=== PATIENT | male | born 1995 | race Two or more races ===

== ENCOUNTER 2017-10-31 18:14 | Emergency (ER) | payer MEDICAID, OTHER ==
[~2017-10-31] VITALS: Ht 177.8 cm; Wt 113.4 kg
[2017-10-31 18:44] VITALS: BP 152/89
[2017-10-31] MEDS ORDERED: LIDOCAINE 1% (LOCAL ANESTH.) PF 5ml SDV ONE (20:52)
[2017-10-31] MEDS ORDERED: TETANUS-DIPTH-ACEL PERTUSSIS 0.5ML SYRG IM ONE (21:00)
[2017-10-31] MEDS ORDERED: LIDOCAINE 1% HCL (LOCAL ANESTH.) INJ 20ML MDV ID ONE (21:00)
== END 2017-10-31 21:42 | disposition home or self-care (01) ==
LOC: ER 18:14
DX: S61.012A Laceration without foreign body of left thumb without damage to nail, initial encounter (principal); X58.XXXA Exposure to other specified factors, initial encounter; Y93.89 Activity, other specified; Y92.89 Other specified places as the place of occurrence of the external cause; Y99.8 Other external cause status
CPT/HCPCS: 12001; 90471; 90715

== ENCOUNTER 2022-06-21 09:05 | Emergency (ER) | payer OTHER ==
[~2022-06-21] VITALS: Ht 175.3 cm; Wt 136.0 kg
[2022-06-21 10:37] VITALS: BP 152/88
[2022-06-21] MEDS ORDERED: IBUPROFEN 600 MG TAB PO ONE (10:45)
[2022-06-21] MEDS ORDERED: IBUP600T28 PO (10:55)
== END 2022-06-21 11:46 | disposition home or self-care (01) ==
LOC: ER 09:05
DX: S80.11XA Contusion of right lower leg, initial encounter (principal); W22.8XXA Striking against or struck by other objects, initial encounter; Y93.89 Activity, other specified; Y92.89 Other specified places as the place of occurrence of the external cause; Y99.0 Civilian activity done for income or pay
CPT/HCPCS: 73590